=== PATIENT | female | born 1950 | race American Indian/Alaskan Native ===

== ENCOUNTER 2016-06-09 14:11 | Outpatient (CLI) | payer MEDICARE ==
--- NOTE | 2016-06-09 15:18 | Mammography Report ---
Screening mammogram: Routine views compared to her prior study in December 2013. The patient had bilateral surgical procedures. Mild architectural distortion on the right is located at prior surgical site in the central anterior breast. There's been interval removal of the small left inferior breast density. The breast pattern bilaterally otherwise appears generally unchanged for any significant findings. CAD used. Impression: Benign findings. Recommendation: Annual mammogram followup. BI-RADS CATEGORY: 2 = Benign ACR BI-RADS MAMMOGRAPHIC CODES: 0 = Needs additional imaging evaluation; 1 = Negative; 2 = Benign; 3 = Probably benign; 4 = Suspicious; 5 = Malignant; 6 = Known biopsy-proven malignancy COMMENT: 1. Dense breast tissue, i.e., adenosis, fibrocystic changes, etc., may obscure an underlying neoplasm. 2. Approximately 10% of cancers are not detected with mammography. 3. A negative mammography report should not delay biopsy if a clinically suspicious mass is present.
== END 2016-06-09 14:12 | disposition home or self-care (01) ==
LOC: MAMMO 14:11
PROVIDERS: ATTEND Internal Medicine
DX: Z12.31 Encounter for screening mammogram for malignant neoplasm of breast (principal)
CPT/HCPCS: 77067; G0202

== ENCOUNTER 2017-06-11 11:24 | Outpatient (CLI) | payer MEDICARE ==
--- NOTE | 2017-06-11 15:20 | Mammography Report ---
BILATERAL DIGITAL SCREENING MAMMOGRAM with CAD: 06/11/17 11:24:00 CLINICAL: Routine screening.Previous right benign biopsy. COMPARISON:06/09/16 FINDINGS: The breasts are heterogeneously dense, which may obscure small masses.Mild right periareolar benign postsurgical scar. No mass, suspicious architectural distortion or suspicious calcifications. IMPRESSION: No mammographic evidence of malignancy. BI-RADS CATEGORY: 2 - - Benign RECOMMENDATION: Routine mammographic screening in one year. COMMENT: Patient follow-up letters are generated by our [employer] application.
== END 2017-06-11 11:25 | disposition home or self-care (01) ==
LOC: MAMMO 11:24
PROVIDERS: ATTEND Internal Medicine
DX: Z12.31 Encounter for screening mammogram for malignant neoplasm of breast (principal); I10 Essential (primary) hypertension; M19.90 Unspecified osteoarthritis, unspecified site; Z98.890 Other specified postprocedural states
CPT/HCPCS: 77067

== ENCOUNTER 2018-06-14 12:27 | Outpatient (CLI) | payer MEDICARE ==
--- NOTE | 2018-06-14 13:59 | Mammography Report ---
BILATERAL MAMMOGRAM: FINDINGS: The breast tissue is heterogeneously dense, which could obscure detection of small masses (approximately 50%-75% glandular). No mass, distortion, suspicious calcification, or skin change is seen. No significant change noted when compared to exams dating back to May 2016. CAD was utilized. IMPRESSION: Negative mammogram. There is no mammographic evidence of malignancy. RECOMMENDATION: Follow-up per ACS guidelines. BI-RADS CATEGORY: 1 = Negative ACR BI-RADS MAMMOGRAPHIC CODES: 0 = Needs additional imaging evaluation; 1 = Negative; 2 = Benign; 3 = Probably benign; 4 = Suspicious; 5 = Malignant; 6 = Known biopsy-proven malignancy COMMENT: 1. Dense breast tissue, i.e., adenosis, fibrocystic changes, etc., may obscure an underlying neoplasm. 2. Approximately 10% of cancers are not detected with mammography. 3. A negative mammography report should not delay biopsy if a clinically suspicious mass is present. COMMENT: Patient follow-up letters are generated in [employer].
== END 2018-06-14 12:28 | disposition home or self-care (01) ==
LOC: MAMMO 12:27
PROVIDERS: ATTEND Internal Medicine
DX: Z12.31 Encounter for screening mammogram for malignant neoplasm of breast (principal); I10 Essential (primary) hypertension; M19.90 Unspecified osteoarthritis, unspecified site; K21.9 Gastro-esophageal reflux disease without esophagitis; Z90.49 Acquired absence of other specified parts of digestive tract; Z90.710 Acquired absence of both cervix and uterus
CPT/HCPCS: 77067

== ENCOUNTER 2019-06-16 09:40 | Outpatient (CLI) | payer MEDICARE ==
--- NOTE | 2019-06-18 09:00 | Mammography Report ---
DIGITAL SCREENING MAMMOGRAM WITH CAD, 06/16/2019 INDICATION: Routine screening mammography. TECHNIQUE: Digital bilateral 2D mammography was obtained in the craniocaudal and mediolateral obliq ue projections. This examination was interpreted with the benefit of Computer-Aided Detection analysi s. COMPARISON: 06/14/2018 FINDINGS: Breast Density: The breasts are heterogeneously dense, which may obscure small masses. There is no evidence of dominant mass, suspicious calcifications or architectural distortion in eithe r breast. IMPRESSION: No mammographic evidence of malignancy. Follow up recommendation: Routine yearly BI-RADS Category 1: Negative. A "normal" or negative report should not discourage follow up or biopsy of a clinically significant f inding. A written summary of these findings will be mailed to the patient. The patient will be entered into a mammography reporting system which will generate a reminder letter for the patient's next appointmen t at the appropriate interval. The [employer] recommends yearly mammograms starting at age 40 and continuing as l yordan as a woman is in good health. Breast MRI is recommended for women with an approximate 20-25% or greater lifetime risk of breast cancer, including women with a strong family history of breast or ova derrick cancer or who have been treated for Hodgkin's disease. Signer Name: Santana Atkinson MD Signed: 06/18/2019 8:56 AM Workstation Name: [id number]
== END 2019-06-16 09:41 | disposition home or self-care (01) ==
LOC: MAMMO 09:40
PROVIDERS: ATTEND Internal Medicine
DX: Z12.31 Encounter for screening mammogram for malignant neoplasm of breast (principal)
CPT/HCPCS: 77067

== ENCOUNTER 2020-06-16 11:12 | Outpatient (CLI) | payer MEDICARE ==
--- NOTE | 2020-06-16 15:27 | Mammography Report ---
DIGITAL SCREENING MAMMOGRAM WITH CAD, 06/16/2020 CLINICAL INFORMATION / INDICATION: Routine screening mammography. ROUTINE TECHNIQUE: Digital bilateral 2D mammography was obtained in the craniocaudal and mediolateral obliqu e projections. This examination was interpreted with the benefit of Computer-Aided Detection analysis . COMPARISON: 11/16/2011 through 06/16/2019. FINDINGS: Breast Density: The breasts are heterogeneously dense, which may obscure small masses. No dominant mass, suspicious calcifications, or architectural distortion in either breast. Right breast scarring is stable. No new abnormality is seen. IMPRESSION: No mammographic evidence of malignancy. Follow up recommendation: Routine yearly BI-RADS Category 2: Benign. A "normal" or negative report should not discourage follow up or biopsy of a clinically significant f inding. A written summary of these findings will be mailed to the patient. The patient will be entered into a mammography reporting system which will generate a reminder letter for the patient's next appointmen t at the appropriate interval. The [employer] recommends yearly mammograms starting at age 40 and continuing as l yordan as a woman is in good health. Breast MRI is recommended for women with an approximate 20-25% or greater lifetime risk of breast cancer, including women with a strong family history of breast or ova derrick cancer or who have been treated for Hodgkin's disease. Signer Name: Dennis Elizalde MD Signed: 06/16/2020 3:22 PM Workstation Name: [id number]
== END 2020-06-16 11:13 | disposition home or self-care (01) ==
LOC: MAMMO 11:12
PROVIDERS: ATTEND Internal Medicine
DX: Z12.31 Encounter for screening mammogram for malignant neoplasm of breast (principal)
CPT/HCPCS: 77067

== ENCOUNTER 2021-02-28 14:31 | Emergency (ER) | payer MEDICARE ==
[2021-02-28] MEDS ORDERED: MORPHINE 4 MG/1 ML INJ IV ONE (15:29)
[2021-02-28] MEDS ORDERED: ONDANSETRON 4 MG/2 ML INJ IV ONE (15:29)
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
[2021-02-28 16:34] LABS: Basophils % (Auto) 0.7 % (0.0-1.8); Eosinophils # (Auto) 0.1 K/mm3 (0.0-0.4); Eosinophils % (Auto) 1.9 % (0.0-4.3); Hematocrit 44.4 % (30.3-42.9); Hemoglobin 14.1 gm/dl (10.1-14.3); Lymphocytes # (Auto) 1.8 K/mm3 (1.2-5.4); Lymphocytes % (Auto) 36.9 % (13.4-35.0); Mean Corpuscular HGB Conc 32 % (30-34); Mean Corpuscular Volume 92 fl (79-97); Monocytes # (Auto) 0.5 K/mm3 (0.0-0.8); Monocytes % (Auto) 10.2 % (0.0-7.3); Platelet Count 290 K/mm3 (140-440); Red Blood Count 4.82 M/mm3 (3.65-5.03); Red Cell Distribution Width 13.9 % (13.2-15.2)
[2021-02-28 16:52] LABS: Alanine Aminotransferase 10 units/L (7-56); Albumin 3.9 g/dL (3.9-5); BUN/Creatinine Ratio 19; Blood Urea Nitrogen 17 mg/dL (7-17); Calcium 9.6 mg/dL (8.4-10.2); Hemolysis Index 26
--- NOTE | 2021-02-28 17:01 | Cat Scan Report ---
CT head/brain wo con INDICATION: ACUTE HEADACHE. TECHNIQUE: Routine CT head. All CT scans at this location are performed using CT dose reduction for A REYNALDO by means of automated exposure control. COMPARISON: None. FINDINGS: Intracranial: Corral-white matter differentiation is maintained. No intracranial hemorrhage. No extra a xial collection. No hydrocephalus. No herniation. Sinuses: Paranasal sinuses and mastoid air cells are essentially clear. Orbits: Globes are intact. Calvarium: Remote right lamina papyracea fracture. No acute fracture. IMPRESSION: 1. No acute intracranial abnormality. Signer Name: Anthony Rodarte MD Signed: 02/28/2021 4:55 PM Workstation Name: [id number]
[2021-02-28 21:07] VITALS: BP 146/80
== END 2021-02-28 20:14 | disposition home or self-care (01) ==
LOC: ED 14:31
DX: R51.9 Headache, unspecified (principal); I10 Essential (primary) hypertension; Z90.49 Acquired absence of other specified parts of digestive tract; Z88.8 Allergy status to other drugs, medicaments and biological substances; Z88.5 Allergy status to narcotic agent
CPT/HCPCS: 36415; 70450; 80053; 85025; 96374; 96375; 99284; J2270; J2405

== ENCOUNTER 2021-08-02 16:07 | Emergency (ER) | payer OTHER, MEDICARE ==
[2021-08-02 16:54] VITALS: BP 161/88
[2021-08-02] MEDS ORDERED: TETANUS,DIPH,PERTUSS(ACELL) VACCINE 0.5 ML SYRINGE IM ONE (20:36)
[2021-08-02] MEDS ORDERED: AMOXICILLIN/K CLAV 875/125MG TAB PO ONE (20:36)
[2021-08-02] MEDS ORDERED: IBUPROFEN 600 MG TAB PO ONE (20:36)
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
== END 2021-08-02 21:00 | disposition home or self-care (01) ==
LOC: ED 16:07
DX: S41.151A Open bite of right upper arm, initial encounter (principal); S41.131A Puncture wound without foreign body of right upper arm, initial encounter; I10 Essential (primary) hypertension; K21.9 Gastro-esophageal reflux disease without esophagitis; M19.90 Unspecified osteoarthritis, unspecified site; R56.9 Unspecified convulsions; Z98.890 Other specified postprocedural states; Z88.5 Allergy status to narcotic agent; Z88.8 Allergy status to other drugs, medicaments and biological substances; W50.3XXA Accidental bite by another person, initial encounter; Y93.89 Activity, other specified; Y92.89 Other specified places as the place of occurrence of the external cause; Y99.8 Other external cause status
CPT/HCPCS: 36415; 86705; 86706; 86803; 90471; 90715; 99282; 99283

== ENCOUNTER 2021-10-15 11:48 | Emergency (ER) | payer MEDICARE ==
[2021-10-15 14:10] LABS: Bilirubin,Urine NEG (Negative); Blood,Urine NEG (Negative); Color,Urine Straw (Yellow); Protein,Urine <15 mg/dL mg/dL (Negative); Urobilinogen,Urine < 2.0 mg/dL (<2.0)
[2021-10-15 14:17] LABS: Amorphous Crystals,Urine Few
[2021-10-15 14:20] LABS: Amphetamine Screen,Urine Negative; Benzodiazepines Screen,Urine Negative; Cannabinoid Screen,Urine Negative; Cocaine Screen,Urine Negative; Methadone Screen,Urine Negative; Opiate Screen,Urine Negative
[2021-10-15 15:07] LABS: Hematocrit 41.6 % (30.3-42.9); Hemoglobin 13.4 gm/dl (10.1-14.3); Mean Corpuscular HGB Conc 32 % (30-34); Mean Corpuscular Volume 92 fl (79-97); Platelet Count 274 K/mm3 (140-440); Red Blood Count 4.53 M/mm3 (3.65-5.03); Red Cell Distribution Width 14.8 % (13.2-15.2)
[2021-10-15 15:32] LABS: Alanine Aminotransferase 13 units/L (7-56); BUN/Creatinine Ratio 13; Blood Urea Nitrogen 12 mg/dL (7-17); Calcium 9.7 mg/dL (8.4-10.2); Hemolysis Index 1
--- NOTE | 2021-10-15 15:49 | Emergency Department Report ---
ED Medical Clearance HPI - General Chief complaint: Medical Clearance Stated complaint: MEDICAL CLEARANCE Time Seen by Provider: 10/15/21 13:35 Source: patient Mode of arrival: Ambulatory - History of Present Illness Initial comments: 71-year-old black female with a past medical history of hypertension presents to the emergency department requesting medical clearance so that she can be admitted to [facility] for detox. She states that her drugs of choice are hydrocodone and fentanyl patches. She denies chest pain, shortness of breath, nausea, vomiting, dizziness, and diaphoresis. She denies any SI or HI. MD Complaint: medical clearance request Alledged Intoxication: No Traumatic Symptoms: denies traumatic injury Associated Symptoms: denies: chest pain, shortness of breath, palpitations, diaphoresis, confusion, cough, fever/chills, headaches, anorexia, malaise, naus ea/vomiting, rash, seizure, syncope, weakness Home medications: Home Medications Medication Instructions Recorded Confirmed Last Taken Aspirin EC [Halfprin EC] 1 tab PO DAILY 08/21/13 08/21/13 08/11/13 09:00 Dicyclomine [Bentyl] 1 tab PO Q4H PRN 08/21/13 08/21/13 Unknown Hydralazine HCl [Apresoline TAB] 1 tab PO DAILY 08/21/13 08/26/13 08/25/13 09:00 Lubiprostone (Nf) [Amitiza (Nf)] 24 mcg PO BID 08/21/13 08/26/13 08/25/13 09:00 Omeprazole 1 cap PO DAILY 08/21/13 08/26/13 08/25/13 09:00 Promethazine [Phenergan] 1 tab PO Q6HR PRN 08/21/13 08/26/13 08/20/13 Tizanidine HCl [Zanaflex] 1 cap PO TID 08/21/13 08/26/13 08/23/13 Topiramate [Trokendi XR CAP] 1 cap PO DAILY 08/21/13 08/26/13 08/26/13 11:00 atenoloL [Tenormin] 1 tab PO DAILY 08/21/13 08/26/13 08/26/13 11:00 fentaNYL 75 MCG/HR Patch 72hr 1 patch Q72H 08/21/13 08/26/13 08/23/13 [DURAGESIC 75 MCG/HR Patch 72hr] Previous Rx's Medication Instructions Recorded Last Taken Type oxyCODONE /ACETAMINOPHEN [Percocet 1 tab PO Q6HR PRN #30 tablet 08/26/13 Unknown Rx 5/325] Ondansetron [Zofran Odt] 4 mg PO Q8HR PRN #14 tab.rapdis 02/28/21 Unknown Rx oxyCODONE /ACETAMINOPHEN [Percocet 1 tab PO Q6HR PRN #10 tablet 02/28/21 Unknown Rx 5/325] Amoxicillin/K Clav Tab [Augmentin 1 tab PO Q12HR #20 tab 08/02/21 Unknown Rx 875 mg] Ibuprofen [Motrin] 600 mg PO Q8H PRN #24 tablet 08/02/21 Unknown Rx Allergies/Adverse reactions: Allergies Allergy/AdvReac Type Severity Reaction Status Date / Time cyclobenzaprine HCl Allergy Rash Verified 02/28/21 15:22 [From Flexeril] divalproex sodium Allergy Vomiting Verified 02/28/21 15:22 [From Depakote] levetiracetam [From Keppra] Allergy Vomiting Verified 02/28/21 15:22 lisinopril Allergy Angioedema Verified 02/28/21 15:22 tramadol Allergy Dizziness Verified 02/28/21 15:22 ED Review of Systems ROS: Stated complaint: MEDICAL CLEARANCE Other details as noted in HPI Comment: All other systems reviewed and negative Constitutional: denies: chills, fever, weakness Eyes: denies: vision change ENT: denies: congestion Respiratory: denies: cough, shortness of breath Cardiovascular: denies: chest pain, palpitations Gastrointestinal: denies: abdominal pain, nausea, vomiting Genitourinary: denies: urgency, dysuria Musculoskeletal: denies: back pain Skin: denies: rash, lesions Neurological: denies: headache, weakness Psychiatric: denies: anxiety, auditory hallucinations, visual hallucinations, homicidal thoughts, suicidal thoughts ED Past Medical Hx - Past Medical History Hx Hypertension: Yes Hx GERD: Yes Hx Arthritis: Yes Hx Seizures: Yes (STARTED IN 2007 AND LAST ONE 04/23/11, DR. WEST- NEUROLOGIST) - Surgical History Hx Cholecystectomy: Yes Hx Breast Surgery: Yes (RT BREAST BX) - Social History Smoking Status: Never Smoker - Medications Home Medications: Home Medications Medication Instructions Recorded Confirmed Last Taken Type Aspirin EC [Halfprin EC] 1 tab PO DAILY 08/21/13 08/21/13 08/11/13 09:00 History Dicyclomine [Bentyl] 1 tab PO Q4H PRN 08/21/13 08/21/13 Unknown History Hydralazine HCl [Apresoline TAB] 1 tab PO DAILY 08/21/13 08/26/13 08/25/13 09:00 History Lubiprostone (Nf) [Amitiza (Nf)] 24 mcg PO BID 08/21/13 08/26/13 08/25/13 09:00 History Omeprazole 1 cap PO DAILY 08/21/13 08/26/13 08/25/13 09:00 History Promethazine [Phenergan] 1 tab PO Q6HR PRN 08/21/13 08/26/13 08/20/13 History Tizanidine HCl [Zanaflex] 1 cap PO TID 08/21/13 08/26/13 08/23/13 History Topiramate [Trokendi XR CAP] 1 cap PO DAILY 08/21/13 08/26/13 08/26/13 11:00 Hi story atenoloL [Tenormin] 1 tab PO DAILY 08/21/13 08/26/13 08/26/13 11:00 History fentaNYL 75 MCG/HR Patch 72hr 1 patch Q72H 08/21/13 08/26/13 08/23/13 History [DURAGESIC 75 MCG/HR Patch 72hr] oxyCODONE /ACETAMINOPHEN [Percocet 1 tab PO Q6HR PRN #30 tablet 08/26/13 Unknown Rx 5/325] Ondansetron [Zofran Odt] 4 mg PO Q8HR PRN #14 tab.rapdis 02/28/21 Unknown Rx oxyCODONE /ACETAMINOPHEN [Percocet 1 tab PO Q6HR PRN #10 tablet 02/28/21 Unknown Rx 5/325] Amoxicillin/K Clav Tab [Augmentin 1 tab PO Q12HR #20 tab 08/02/21 Unknown Rx 875 mg] Ibuprofen [Motrin] 600 mg PO Q8H PRN #24 tablet 08/02/21 Unknown Rx ED Physical Exam - General Limitations: No Limitations General appearance: alert, in no apparent distress - Head Head exam: Present: atraumatic, normocephalic - Eye Eye exam: Present: normal appearance. Absent: scleral icterus, conjunctival injection, periorbital swelling, periorbital tenderness - ENT ENT exam: Present: normal exam - Neck Neck exam: Present: normal inspection, full ROM. Absent: tenderness, lymphadenopathy - Respiratory Respiratory exam: Present: normal lung sounds bilaterally. Absent: respiratory distress, wheezes, rales, rhonchi, stridor, chest wall tenderness - Cardiovascular Cardiovascular Exam: Present: regular rate, normal heart sounds - GI/Abdominal GI/Abdominal exam: Present: soft, normal bowel sounds. Absent: distended, tenderness, guarding, rebound, rigid - Extremities Exam Extremities exam: Present: normal inspection, full ROM, normal capillary refill. Absent: tenderness, pedal edema, joint swelling, calf tenderness - Back Exam Back exam: Present: normal inspection. Absent: CVA tenderness (R), CVA tenderness (L), vertebral tenderness - Neurological Exam Neurological exam: Present: alert, oriented X3, CN II-XII intact, normal gait, reflexes normal. Absent: motor sensory deficit - Psychiatric Psychiatric exam: Present: normal affect, normal mood. Absent: homicidal ideation, suicidal ideation - Skin Skin exam: Present: warm, dry, intact, normal color ED Course Vital Signs 10/15/21 10/15/21 12:00 15:20 Temperature 97.5 F L 98.5 F Pulse Rate 60 66 Respiratory 18 16 Rate Blood Pressure 133/86 Blood Pressure 153/68 [Right] O2 Sat by Pulse 98 98 Oximetry ED Medical Decision Making - Lab Data Result diagrams: 10/15/21 14:40 10/15/21 14:40 - Medical Decision Making 71-year-old black female with a past medical history of hypertension presents to the emergency department requesting medical clearance so that she can be admitted to [facility] for detox. She states that her drugs of choice are hydrocodone and fentanyl patches. She denies chest pain, shortness of breath, nausea, vomiting, dizziness, and diaphoresis. She denies any SI or HI. Physical exam unremarkable. Work-up unremarkable. Patient in no acute distress, denies any symptoms, and is medically cleared to follow-up at [facility] for assistance with hydrocodone and fentanyl patch addiction as planned. She is advised to follow-up in the emergency department as needed. She verbalizes understanding of and agreement with plan of care ED Disposition Clinical Impression: Medical clearance for psychiatric admission Disposition: HOME / SELF CARE / HOMELESS Is pt being admited?: No Does the pt Need Aspirin: No Condition: Stable Instructions: Health Maintenance After Age 65, Medical Screening Exam Additional Instructions: Vital signs are within normal limits. Labs within normal limits. Patient with no acute distress noted. Patient medically cleared for admission to detox Referrals: PRIMARY CAREMD [Primary Care Provider] - 3-5 Days Time of Disposition: 15:48
[2021-10-15 16:38] VITALS: BP 133/86
== END 2021-10-15 16:38 | disposition home or self-care (01) ==
LOC: ED 11:48
DX: Z13.30 Encounter for screening examination for mental health and behavioral disorders, unspecified (principal); I10 Essential (primary) hypertension; Z90.49 Acquired absence of other specified parts of digestive tract; Z88.0 Allergy status to penicillin; Z88.5 Allergy status to narcotic agent
CPT/HCPCS: 36415; 80053; 80307; 80320; 81001; 85027; 99282; 99283; G0480